=== PATIENT | male | born 1985 | race African-American/Black ===

== ENCOUNTER 2022-09-10 21:19 | Emergency (ER) | payer SELFPAY ==
[~2022-09-10] VITALS: Ht 185.4 cm; Wt 154.2 kg
[2022-09-10] MEDS ORDERED: IBUPROFEN 600 MG TAB PO STA (21:55)
== END 2022-09-10 22:53 | disposition home or self-care (01) ==
LOC: FSED 21:37
DX: R50.9 Fever, unspecified (principal); U07.1 COVID-19; E66.9 Obesity, unspecified; I10 Essential (primary) hypertension; E11.9 Type 2 diabetes mellitus without complications; G47.33 Obstructive sleep apnea (adult) (pediatric)
CPT/HCPCS: 87400; 99282